=== PATIENT | male | born 1955 | race Caucasian/White ===

== ENCOUNTER 2017-08-03 05:47 | Observation (INO) | payer BC ==
--- NOTE | 2017-07-17 15:13 | PAT Medication Instructions ---
Service Date Jul 17, 2017. Current Home Medication List Acetaminophen (Tylenol), 500-1,000 MG PO PRN Amlodipine (Norvasc), 5 MG PO QAM Atorvastatin (Lipitor), 40 MG PO QAM Lisinopril (Zestril), 40 MG PO QAM Omeprazole (Prilosec), 20 MG PO QAM Medication Instructions For Your Scheduled Surgery - Hold the following medications the morning of surgery: Lisinopril (Zestril), 40 MG PO QAM - Take the following medications the morning of surgery with a sip of water OTHERWISE NOTHING TO EAT OR DRINK AFTER MIDNIGHT: Omeprazole (Prilosec), 20 MG PO QAM Amlodipine (Norvasc), 5 MG PO QAM Atorvastatin (Lipitor), 40 MG PO QAM Acetaminophen (Tylenol), 500-1,000 MG PO PRN (may take up to 4 hours prior to surgery if needed) - Take the following medications as scheduled the night before surgery: Acetaminophen (Tylenol), 500-1,000 MG PO PRN If you have any questions please call us at [phone] or [phone] or [phone]
--- NOTE | 2017-07-17 15:49 | DIAGNOSTIC IMAGING REPORT ---
CHEST PREADMISSION(PA/LAT) CLINICAL HISTORY: Preoperative chest COMPARISON STUDY: 04/14/2015 FINDINGS: The cardiac and mediastinal contours are normal. There is no evidence of focal pulmonary consolidation. There is no evidence of failure. No pleural effusions are visualized.[ IMPRESSION: No active disease in the chest. Electronically signed by: Chris Andres M.D. 07/17/2017 3:47 PM Dictated Date/Time: 07/17/2017 3:47 PM
[2017-07-17 16:43] LABS: BASO % 0.3 %; BASO ABS # 0.03 K/uL (0-0.2); COMPLETE YES; EOS % 1.9 %; HEMATOCRIT 41.6 % (42-52); IG% 0.4 %; LYMPH % 28.8 %; LYMPH ABS # 2.59 K/uL (1.2-3.4); MEAN CELL VOLUME 85.1 fL (80-100); MEAN CORPUSCULAR HGB CONC 34.1 g/dl (32-36); MEAN PLATELET VOLUME 10.7 fL (7.4-10.4); MONO % 10.3 %; NEUT % 58.3 %; PLATELET COUNT 233 K/uL (130-400); RED BLOOD COUNT 4.89 M/uL (4.7-6.1)
[2017-07-17 16:44] LABS: URINE APPEARANCE CLEAR (CLEAR); URINE BILIRUBIN NEG (NEG); URINE COLOR DK YELLOW; URINE NITRITE NEG (NEG); URINE SPECIFIC GRAVITY 1.026 (1.000-1.030); UROBILINOGEN NEG (NEG)
[2017-07-17 16:46] LABS: MANUAL MICROSCOPIC REQUIRED? NO; REVIEW REQ? NO
[2017-07-17 16:51] LABS: BUN/CREATININE RATIO 19.8 (10-20); CALCIUM 8.6 mg/dl (8.5-10.1); CREATININE 0.82 mg/dl (0.60-1.40)
[~2017-08-03] VITALS: Ht 172.7 cm; Wt 89.6 kg
[2017-08-03] VITALS (8 sets, daily range): BP systolic 107–121; BP diastolic 62–77; PULSE 79–92; TEMP 36.3–36.7; O2SAT 92–98; Ht 172.7 cm; Wt 89.6 kg
[~2017-08-03 05:47] MED LIST: ACET-1256 PO; AMLO-110 PO; LISI40TA PO; LPT/40 PO; OMEP20CA59 PO
[2017-08-03] MEDS ORDERED: LACTATED RINGER'S 1000ML 1,000 ML IV SCH (06:00)
[2017-08-03] MEDS ORDERED: GENTAMICIN INJ 120 MG in DEXTROSE 5% 100ML 100 ML IV SCH (06:00)
[2017-08-03] MEDS ORDERED: CEFAZOLIN 2000 MG/60 ML D5W IV SCH (06:00)
[2017-08-03] MEDS ORDERED: PROPOFOL IV EMULSION 10 MG/ML 20 ML VIAL IV ONE (06:34)
[2017-08-03] MEDS ORDERED: DEXAMETHASONE SOD INJ 4 MG/ML VIAL ONE (06:34)
[2017-08-03] MEDS ORDERED: LIDOCAINE HCL 2% 2 ML VIAL (20MG/ML) ONE (06:34)
[2017-08-03] MEDS ORDERED: ONDANSETRON INJ 2 MG/ML 2 ML VIAL ONE ×2 (06:34→08:47)
[2017-08-03] MEDS ORDERED: FENTANYL CITRATE INJ 50 MCG/1 ML 2 ML VIAL ONE ×5 (06:35→09:23)
[2017-08-03] MEDS ORDERED: MIDAZOLAM HCL 1 MG/ML 2ML VIAL ONE (06:35)
[2017-08-03] MEDS ORDERED: HYDROmorphone INJ 1 MG/ML SYR IV PRN ×2 (07:00→10:45)
[2017-08-03] MEDS ORDERED: EpHEDrine SULFATE INJ 50 MG/ML AMP IV PRN (07:00)
[2017-08-03] MEDS ORDERED: ATROPINE SULFATE 0.1 MG/ML 5ML SYR IV PRN (07:00)
[2017-08-03] MEDS ORDERED: ONDANSETRON INJ 2 MG/ML 2 ML VIAL IV PRN ×2 (07:00→10:45)
[2017-08-03] MEDS ORDERED: VANCOMYCIN HCL 1000MG/20ML VIAL ONE (07:01)
[2017-08-03] MEDS ORDERED: GENTAMICIN SULFATE 40 MG/ML 2 ML VIAL ONE (07:02)
[2017-08-03] MEDS ORDERED: BUPIVACAINE 0.25% 30 ML VIAL ONE (07:02)
[2017-08-03] MEDS ORDERED: BACITRACIN OINT 15 GM TUBE ONE (07:03)
--- NOTE | 2017-08-03 07:04 | History & Physical Bridge Note ---
H&P Re-Evaluation Bridge Note: I have examined the patient, reviewed the History & Physical and in the interval since the performance of the History & Physical I have noted the following changes of clinical significance: No changes noted
[2017-08-03] MEDS ORDERED: EpHEDrine SULFATE 50MG/5ML SYR ONE (08:12)
[2017-08-03] MEDS: FENTANYL CITRATE INJ 50 MCG/1 ML 2 ML VIAL IV PRN ×4 (10:30→10:46)
--- NOTE | 2017-08-03 10:41 | [facility] Post Operative Brief Note ---
Immediate Operative Summary Operative Date Aug 03, 2017. Pre-Operative Diagnosis Organic impotence; Peyronie's disease Post-Operative Diagnosis Same as preop Procedure(s) Performed Implantation of Inflatable 3-piece Penile Prosthesis Surgeon Dr. Brett Soto Systems Consultant Surgeon(s) Dr. Franki Friend Estimated Blood Loss 50 cc Findings 12+4 cm bilateral AMS implant placed, good erection with modest glanular mobility, tested multiple times intraop with good seating and function. Specimens None, as per surgeon Drains Martins to gravity Anesthesia GAET Complication(s) None Disposition Recovery Room / PACU
[2017-08-03] MEDS ORDERED: OXYCODONE/ACETAMINOPHEN 5-325 TAB PO PRN ×2 (10:45)
[2017-08-03] MEDS ORDERED: HYDROmorphone INJ 0.5 MG/0.5 ML SYR IV PRN (10:45)
[2017-08-03] MEDS ORDERED: ACETAMINOPHEN 325 MG TAB PO PRN (10:45)
--- NOTE | 2017-08-03 10:48 | [facility] Operative Report ---
Operative Report Operative Date Aug 03, 2017. Pre-Operative Diagnosis Organic impotence; Peyronie's disease Post-Operative Diagnosis Same as preop Procedure(s) Performed Implantation of Inflatable 3-piece Penile Prosthesis Surgeon Dr. Brett Soto Rubber Block Layer Surgeon(s) Dr. Franki Friend Estimated Blood Loss 50 cc Findings 12+4 cm bilateral AMS implant placed, good erection with modest glanular mobility, tested multiple times intraop with good seating and function. Fluids 1 L crystalloid Specimens None, as per surgeon Drains Martins to gravity Anesthesia GAET Complication(s) None Disposition Recovery Room / PACU Indications Patient is a pleasant 62-year-old male well known to our service was here today for difficulties with persistent organic impotence and bother 2 years after prostatectomy. He has a history of Peyronie's disease with successful penile plication 5 years ago. Please see H&P for further details. He is here today for implantation of an inflatable prosthesis to assist with his sexual function. Intravenous Ancef and gentamicin a provided for antibiotic coverage and SCDs used for DVT prophylaxis. Description of Procedure Patient was properly identified and brought to the operative suite after identification of appropriate consent in the chart. General anesthesia with endotracheal intubation was initiated and patient was prepped and draped in the standard fashion for this procedure. Full timeout procedure was followed. Of note patient had a greater than 10 minute scrub prior to painting with Betadine for his prep. Penoscrotal incision was made after placement of Martins catheter and the bladder being drained and dissection was carried down to the corpora deep within the scrotum. An anterior dartos pouch was made low in the scrotum and packed with an antibiotic-soaked sponge. Antibiotic infused irrigation was used throughout the case will avoiding soaking the antibiotic impregnated AMS implant device. After the corpora cavernosa been well dissected and the urethra identified a Vicryl sutures were used and the stay fashion followed by corporotomies between the 2. Corpora were dilated up to a 12 Irish caliber distally and proximally and the length was measured at 8 cm proximal and 8 cm distal on the left-hand side and 8 cm proximal and 7 cm distal on the right- hand side. AMS device and reservoir were primed with sterile saline. Logan needle was passed through the glans on both sides attached to the string for the device with great care being taken to avoid any twisting or turning in the implant. A 12 cm implanted with 4 semirigid tip extenders on both sides was used. These seated in an excellent position when tested without closure of the corporotomy with no bulging or buckling at the site consistent with good sizing. Implant was noted to extend into the glans with mild glanular mobility. Closure sutures of been placed prior to placement of the device to minimize the odds of injury. These were then tied shut over the implant. The pump was placed low in the scrotum at the site of the previously made dartos pouch after removal of the antibiotic impregnated sponge. 2-0 suture was used on the dartos fascia around the tubing to secure this in place and avoid cephalad migration. Great care was taken to avoid any injury to the device on placement of sutures. Using the surgeon's finger over a Metzenbaum scissors a puncture was made in the rectus fascia on the right-hand side over the pubis at the level of the inguinal canal. This was enlarged sufficiently to allow for position of the reservoir. Delavan was placed and inflated and noted to be in a good position within the previously dissected space of Retzius with no back pressure on inflation. After this was complete the tubing was flushed and a quick connect was used to attach the pump to the reservoir with minimal redundant tubing. The device was cycled several times in the operating room with no buckling at the corporotomy closure sites and good erection. Incision was closed in 2 layers with 2-0 Vicryl to the dartos fascia and 3-0 chromic in a vertical mattress interrupted fashion to the level of the skin. Bacitracin ointment was placed over the incision as well as scrotal support and fluffs. Catheter was placed to gravity drainage. Anesthesia was reversed patient's transient recovery room in stable condition. Follow-up care: Patient will be admitted to the floor for overnight observation and IV antibiotics 24 hours. Trial void in the morning. Care is discussed with the patient's today per his request. I attest to the content of the Intraoperative Record and any orders documented therein. Any exceptions are noted below.
--- NOTE | 2017-08-03 11:06 | Anesthesiology Progress Note ---
Anesthesia Post Op Note Date & Time Aug 03, 2017 at 11:06 Vital Signs Pain Intensity: 5 Vital Signs Past 12 Hours Date Time Temp Pulse Resp B/P (MAP) Pulse Ox O2 Delivery O2 Flow Rate FiO2 08/03/17 11:00 89 11 122/73 94 Nasal Cannula 2 08/03/17 10:50 88 11 128/76 92 Nasal Cannula 2 08/03/17 10:40 79 12 92/44 96 Oxymask 10 08/03/17 10:30 85 14 136/78 97 Oxymask 10 08/03/17 10:20 36.2 88 12 135/78 97 Oxymask 10 Notes Mental Status: alert / awake / arousable, participated in evaluation Pt Amnestic to Procedure: Yes Nausea / Vomiting: adequately controlled Pain: adequately controlled Airway Patency, RR, SpO2: stable & adequate BP & HR: stable & adequate Hydration State: stable & adequate Anesthetic Complications: no major complications apparent
[2017-08-03] MEDS: LACTATED RINGER'S 1000ML 1,000 ML IV SCH ×2 (13:29→19:24)
[2017-08-03] MEDS ORDERED: IV FLUIDS COMPLETED PRN (13:45)
[2017-08-03] MEDS: FAMOTIDINE IV INJ 20 MG in DEXTROSE 5% 100ML 100 ML IV SCH ×2 (14:28→21:29)
[2017-08-03] MEDS: CEFAZOLIN IV 1,000 MG in DEXTROSE 5% 50ML 50 ML IV SCH ×2 (15:42→22:00)
--- NOTE | 2017-08-03 16:48 | Progress Note ---
Progress Note Date of Service Aug 03, 2017. Progress Note Patient seen in PM rounds POD#0 s/p penile prosthesis placement. No complaints, comfortable, in bed Abdirizak PO, no emesis NAD Good respiratory excursion S1S2 Soft, ND, NT Appropriate postop penile edema, lombardi in place, no bleeding or evidence of infection, ice packs and scrotal support with fluffs in place A/P Doing well postop Care reviewed Advance diet as tolerated, IV ABx overnight, plan on DC home tomorrow
[2017-08-03] MEDS: GENTAMICIN INJ 80 MG in DEXTROSE 5% 100ML 100 ML IV SCH ×2 (16:51→23:59)
[2017-08-03] MEDS ORDERED: NURSING VERBAL MED ORDER STA (19:58)
[2017-08-03] MEDS ORDERED: PROMETHAZINE HCL INJ 25 MG in SODIUM CHLORIDE 0.9% 50ML 50 ML IV PRN (20:30)
[2017-08-03] MEDS ORDERED: TRAMADOL HCL 50 MG TAB PO PRN (20:30)
[2017-08-03] MEDS: DOCUSATE SODIUM 100 MG CAP PO SCH (22:02)
[2017-08-03] MEDS: BACITRACIN OINT 15 GM TUBE EXT SCH (22:02)
[2017-08-04] MEDS: LACTATED RINGER'S 1000ML 1,000 ML IV SCH ×2 (02:18→08:40)
[2017-08-04 04:05] VITALS: BP 106/65; PULSE 94; TEMP 36.7; O2SAT 95
[2017-08-04] MEDS: CEFAZOLIN IV 1,000 MG in DEXTROSE 5% 50ML 50 ML IV SCH ×2 (05:52→05:57)
[2017-08-04] MEDS: BACITRACIN OINT 15 GM TUBE EXT SCH (05:52)
[2017-08-04 07:44] VITALS: BP 129/72; PULSE 88; TEMP 36.9; O2SAT 96
[2017-08-04 07:53] LABS: BASO ABS # 0.01 K/uL (0-0.2); COMPLETE YES; HEMATOCRIT 38.3 % (42-52); IG% 0.2 %; LYMPH % 4.6 %; LYMPH ABS # 1.01 K/uL (1.2-3.4); MEAN CELL VOLUME 86.8 fL (80-100); MEAN CORPUSCULAR HGB CONC 33.4 g/dl (32-36); MEAN PLATELET VOLUME 10.2 fL (7.4-10.4); MONO % 8.9 %; NEUT % 86.3 %; PLATELET COUNT 218 K/uL (130-400); RED BLOOD COUNT 4.41 M/uL (4.7-6.1); WHITE BLOOD COUNT 22.12 K/uL (4.8-10.8)
[2017-08-04] MEDS ORDERED: CEPH500C2 PO (08:00)
[2017-08-04] MEDS ORDERED: DOCU-94 PO (08:00)
[2017-08-04] MEDS ORDERED: OXYC7.5T65 PO (08:00)
--- NOTE | 2017-08-04 08:02 | Discharge Instructions ---
Discharge Instructions Date of Service Aug 04, 2017. Admission Reason for Admission: Organic Impotence (Erectile Dysfunction) Discharge Discharge Diagnosis / Problem: ED s/p IPP Discharge Goals Goal(s): Improve function, Therapeutic intervention Activity Recommendations Activity Limitations: as noted below Lifting Limitations: no more than 25 pounds, gradually increase as tolerated ( over 1-2 weeks) Exercise/Sports Limitations: rest today, gradually increase as tolerated (over 1-2 weeks) Shower/Bathe: may shower/bathe in 3 days (No tub bath, may shower) Driving or Machine Use: resume 3 days after discharge . Instructions / Follow-Up Instructions / Follow-Up Follow-up in office as scheduled Bacitracin ointment to incision twice a day Ice packs and scrotal support x 2 days, then as needed for comfort Current Hospital Diet Hospital Diet(s): Regular Diet Discharge Diet Recommended Diet: Regular Diet Procedures Procedures Performed: Implantation of Inflatable 3-piece Penile Prosthesis Pending Studies Studies pending at discharge: no Medical Emergencies . Who to Call and When: Medical Emergencies: If at any time you feel your situation is an emergency, please call 911 immediately. . Non-Emergent Contact Non-Emergency issues call your: Urologist Call Non-Emergent contact if: you have a fever, temperature is above 100.5, temperature is above 101, temperature is above 101.5, your pain is not controlled, your pain is worsening, your pain is concerning you, wound has increased drainage, wound has increased redness, wound has increased pain, you have any medication questions . . "Provider Documentation" section prepared by Willie Soto. . VTE Core Measure Inpt VTE Proph given/why not?: SCD's [place] Drug Monitoring Program Search Results: patient reviewed within database, no issues identified
--- NOTE | 2017-08-04 08:07 | Progress Note ---
Subjective Date of Service: Aug 04, 2017. Subjective Pt evaluation today including: conversation w/ patient, physical exam, chart review, review of inpatient medication list Pain: Controlled with meds PO Intake: Emesis yesterday with PO, tim clears this AM Voiding: lombardi catheter in place 62 yo male POD#1 s/p IPP. Feeling better this AM, pain and emesis yesterday, was OOB and ambulated short distance yesterday. He is comfortable with ice packs , conversant, no new complaints. Review of Systems Constitutional: No fever, No chills Eyes: No worsening of vision ENT: No hearing loss Respiratory: No sputum, No wheezing Cardiac: No chest pain Abdomen: + vomiting (last PM) Musculoskeletal: No calf pain Male : + see HPI Neurologic: No memory loss, No paralysis Psychiatric: No depression symptoms Heme: + abnormal bleeding/bruising (appropriate at incision) Endo: No excessive thirst Skin: No new/changing skin lesions, No color change Objective Vital Signs Date Time Temp Pulse Resp B/P (MAP) Pulse Ox O2 Delivery O2 Flow Rate FiO2 08/04/17 07:44 36.9 88 18 129/72 (91) 96 Room Air 08/04/17 04:05 36.7 94 16 106/65 (79) 95 Room Air 08/03/17 23:45 Room Air 08/03/17 23:00 36.3 88 16 107/67 (80) 93 Room Air 08/03/17 19:15 Room Air 08/03/17 19:14 36.7 88 18 108/62 (77) 93 Room Air 08/03/17 15:40 36.3 79 18 111/68 (82) 98 Nasal Cannula 2.0 08/03/17 14:34 91 17 114/77 (89) 95 Nasal Cannula 2.0 08/03/17 13:27 86 14 116/68 (84) 97 Nasal Cannula 2.0 08/03/17 12:33 36.3 84 17 112/73 (86) 97 Nasal Cannula 2.0 08/03/17 12:00 92 16 121/75 (90) 97 Nasal Cannula 2.0 08/03/17 11:30 36.4 89 18 121/75 (90) 92 Nasal Cannula 2.0 08/03/17 11:30 92 Nasal Cannula 2.0 08/03/17 11:30 Nasal Cannula 08/03/17 11:20 36.2 90 14 127/71 94 Nasal Cannula 2 08/03/17 11:10 85 15 120/71 94 Nasal Cannula 2 08/03/17 11:00 89 11 122/73 94 Nasal Cannula 2 08/03/17 10:50 88 11 128/76 92 Nasal Cannula 2 08/03/17 10:40 79 12 92/44 96 Oxymask 10 08/03/17 10:30 85 14 136/78 97 Oxymask 10 08/03/17 10:20 36.2 88 12 135/78 97 Oxymask 10 Physical Exam General Appearance: WD/WN, no apparent distress ENT: normal ENT inspection, hearing grossly normal Neck: supple, no adenopathy Respiratory/Chest: no respiratory distress, no accessory muscle use Cardiovascular: no JVD Abdomen: non tender, soft, + pertinent finding (reservoir site unremarkable) Extremities: non-tender Neurologic/Psychiatric: alert, oriented x 3 Comments: - appropriate penile edema and genital bruising postop. Chromic mattress sutures with bacitracin intact. No drainage or evidence of infection. Prosthesis cycled, inflated to ~40% for discharge. Laboratory Results Last 24 Hours Test 08/04/17 07:30 White Blood Count 22.12 K/uL Red Blood Count 4.41 M/uL Hemoglobin 12.8 g/dL Hematocrit 38.3 % Mean Corpuscular Volume 86.8 fL Mean Corpuscular Hemoglobin 29.0 pg Mean Corpuscular Hemoglobin Concent 33.4 g/dl Platelet Count 218 K/uL Mean Platelet Volume 10.2 fL Neutrophils (%) (Auto) 86.3 % Lymphocytes (%) (Auto) 4.6 % Monocytes (%) (Auto) 8.9 % Eosinophils (%) (Auto) 0.0 % Basophils (%) (Auto) 0.0 % Neutrophils # (Auto) 19.08 K/uL Lymphocytes # (Auto) 1.01 K/uL Monocytes # (Auto) 1.97 K/uL Eosinophils # (Auto) 0.00 K/uL Basophils # (Auto) 0.01 K/uL RDW Standard Deviation 43.4 fL RDW Coefficient of Variation 13.6 % Immature Granulocyte % (Auto) 0.2 % Immature Granulocyte # (Auto) 0.05 K/uL Assessment and Plan A/P 62 yo male POD#1 s/p penile prosthesis. Healing well, cycling well tolerated this AM. Readvance diet and activity this AM - DC home after lunch if tolerating both. DC instructions and care reviewed, AMS packet contents reviewed. Postop appointment confirmed, Rx Percocet, Keflex x 1 week and Colace placed in chart. Discharge planning: home
[2017-08-04 08:21] LABS: BUN/CREATININE RATIO 11.8 (10-20); CREATININE 0.91 mg/dl (0.60-1.40)
[2017-08-04] MEDS: DOCUSATE SODIUM 100 MG CAP PO SCH (08:40)
[2017-08-04] MEDS: FAMOTIDINE IV INJ 20 MG in DEXTROSE 5% 100ML 100 ML IV SCH (08:40)
[2017-08-04] MEDS: GENTAMICIN INJ 80 MG in DEXTROSE 5% 100ML 100 ML IV SCH (08:41)
[2017-08-04] MEDS ORDERED: ATORVASTATIN 20 MG TAB PO SCH (09:00)
[2017-08-04] MEDS ORDERED: AMLODIPINE BESYLATE 5 MG TAB PO SCH (09:00)
[2017-08-04] MEDS ORDERED: LISINOPRIL 40 MG TAB PO SCH (09:00)
[2017-08-04] MEDS ORDERED: NURSING VERBAL MED ORDER ONE (11:00)
[2017-08-04 12:13] VITALS: BP 129/72; PULSE 88; TEMP 36.9; O2SAT 96
--- NOTE | 2017-08-04 13:46 | Anesthesiology Progress Note ---
Anesthesia Post Op Note Date & Time Aug 04, 2017 at 13:46 Vital Signs Pain Intensity: 3.0 Vital Signs Past 12 Hours Date Time Temp Pulse Resp B/P (MAP) Pulse Ox O2 Delivery O2 Flow Rate FiO2 08/04/17 12:13 36.9 88 18 96 Room Air 08/04/17 08:00 Room Air 08/04/17 07:44 36.9 88 18 129/72 (91) 96 Room Air 08/04/17 04:05 36.7 94 16 106/65 (79) 95 Room Air Notes Mental Status: alert / awake / arousable, participated in evaluation Pt Amnestic to Procedure: Yes Nausea / Vomiting: adequately controlled Pain: adequately controlled Airway Patency, RR, SpO2: stable & adequate BP & HR: stable & adequate Hydration State: stable & adequate Anesthetic Complications: no major complications apparent
--- NOTE | 2017-08-17 16:06 | Discharge Summary ---
Discharge Summary Date of Service Aug 17, 2017. Discharge Summary Date of admission: 08/03/2017 Date of discharge: 08/04/2017 Admitting attending: Dr. Willie Soto Admitting diagnosis: Organic impotence Discharge diagnosis: Same Procedures over admission: Implantation of inflatable penile prosthesis Brief history: Mr. Soto is a pleasant 62-year-old male with a history of prostate cancer status post radical prostatectomy. His history of Peyronie's disease and penile plication is also noted. He is continued to have difficulties with refractory erectile dysfunction despite attempting oral medications, muse suppositories and injectables. After discussion of various management options he is decided upon an implantable penile prosthesis to manage his disease. Please see H&P for further details Hospital course: Patient underwent uncomplicated implantation of a penile prosthesis as planned on 08/03/2017. Please see operative report for further details. Postoperatively he was admitted to the floor for diet and activity were rapidly advanced. Prosthesis was cycled postoperative day #1 no evidence of infection was noted. Patient remained on IV antibiotics while an inpatient for coverage. By postoperative day #1 he was ambulating in the hallway, comfortable on oral pain medication and tolerating a regular diet. He was considered stable for discharge home at this time Discharge instructions: Patient instructed on training of the pump for his prosthesis. Oral pain medication, antibiotics and stool softeners are provided. Patient's instructed to contact us should he note any fevers, chills , nausea, vomiting or other difficulties in the postoperative period. Please see discharge instruction sheets for further instructions and limitations. Postoperative appointment is confirmed.
== END 2017-08-04 14:20 | disposition home or self-care (01) ==
LOC: C.ACU 05:47 → C.MSW 10:39 → EDBEDREQ 11:18 → ENRESERV 11:19
PROVIDERS: ADMIT Urology; ATTEND Urology
DX: N52.9 Male erectile dysfunction, unspecified (principal); N48.6 Induration penis plastica; E78.5 Hyperlipidemia, unspecified; I10 Essential (primary) hypertension; N39.3 Stress incontinence (female) (male); C61 Malignant neoplasm of prostate; Z82.49 Family history of ischemic heart disease and other diseases of the circulatory system